=== PATIENT | male | born 1960 | race Caucasian/White ===

== ENCOUNTER 2021-01-24 11:31 | Inpatient (IN) | payer OTHER ==
[~2021-01-24] VITALS: Ht 182.9 cm; Wt 99.3 kg
[2021-01-24 12:58] LABS: HEMOGLOBIN 12.6 gm/dl (14.0-17.5); RED BLOOD COUNT 4.12 M/UL (4.20-5.50); WHITE BLOOD COUNT 12.8 K/UL (4.5-11.0)
[2021-01-24 13:18] LABS: BUN/CREATININE RATIO 13 (0-10)
[2021-01-25 05:55] LABS: HEMOGLOBIN 11.4 gm/dl (14.0-17.5); RED BLOOD COUNT 3.8 M/UL (4.20-5.50); WHITE BLOOD COUNT 12.7 K/UL (4.5-11.0)
[2021-01-26 05:08] LABS: HEMOGLOBIN 11.5 gm/dl (14.0-17.5); RED BLOOD COUNT 3.82 M/UL (4.20-5.50); WHITE BLOOD COUNT 10.9 K/UL (4.5-11.0)
--- NOTE | 2021-01-26 08:10 | NUR ---
RN ADMINISTERED PATIENT'S MEDICATIONS PER ORDER AND ASKED IF HE NEEDED ANYTHING. PATIENT STATED HE WOULD LIKE TO GET UP LATER IN THE DAY AND ASKED RN IF IT WAS OKAY. RN ENCOURAGED PATIENT TO USE HIS CALL LIGHT TO ASK STAFF FOR HELP TO ENSURE SAFETY IF OXYGEN SATURATION OR BLOOD PRESSURE DECREASED ON SITTING OR STANDING. PATIENT VERBALIZED UNDERSTANDING AND AGREED TO RING OUT WHEN HE DESIRED TO AMBULATE. NO S/SX OF PAIN OR DISTRESS NOTED. BED LOCKED AND LOW. CALL LIGHT WITHIN REACH.
[2021-01-27 07:27] LABS: HEMOGLOBIN 10.9 gm/dl (14.0-17.5); RED BLOOD COUNT 3.78 M/UL (4.20-5.50); WHITE BLOOD COUNT 11.2 K/UL (4.5-11.0)
--- NOTE | 2021-01-27 09:40 | NUR ---
RN WAS IN PATIENT'S ROOM TALKING WITH PATIENT AND PATIENT'S WHILE ADMINISTERING MORNING MEDICATIONS. PATIENT'S INFORMED RN THAT SHE HAD REMOVED PATIENT'S OXYGEN "FOR 8 MINUTES" WHILE SHE INSTRUCTED HIM TO BREATHE DEEPLY THROUGH PURSED LIPS. RN EDUCATED PATIENT AND HIS THAT IT WASN'T A GOOD IDEA TO REMOVE OXYGEN FOR LONG PERIODS OF TIME. RN STATED IT WOULD BE ALRIGHT TO REMOVE BRIEFLY TO CLEAN NOSE IF NECESSARY, BUT IT NEEDED TO STAY IN. PATIENT STATED HIS NOSE WAS DRY AND IT MADE IT PAINFUL TO WEAR HIS OXYGEN. SUGGESTED HE USE FACILITY CHAPSTICK TO MOISTEN NASAL PASSAGE IT WAS PETROLEUM FREE, RN AGREED. PATIENT BED LOCKED AND LOW. NO S/SX OF PAIN OR DISCOMFORT. RN CALLED TELEMETRY AND ASKED IF PATIENT'S OXYGEN HAD DROPPED ANY THIS SHIFT, THEY STATED HIS OXYGEN WENT TO 80 BUT HE "WENT RIGHT BACK UP." RN INSTRUCTED THEM TO CALL IF PATIENT'S OXYGEN SATURATION FELL BELOW 90 AGAIN, STAFF AGREED. MADE AWARE.
[2021-01-28 06:59] LABS: HEMOGLOBIN 11.3 gm/dl (14.0-17.5); RED BLOOD COUNT 3.75 M/UL (4.20-5.50); WHITE BLOOD COUNT 11.7 K/UL (4.5-11.0)
[2021-01-28 07:19] LABS: BUN/CREATININE RATIO 14 (0-10)
--- NOTE | 2021-01-28 07:20 | NUR ---
RN NOTICED THAT PATIENT OXYGEN SATURATION FELL BELOW 90%. RN CALLED TELEMETRY TO SEE IF IT WAS AN ACCURATE READING. STAFF WENT TO CHECK ON PATENT AND SAW THAT PATIENT WAS WALKING TO THE BATHROOM. PATIENT OXYGEN SATURATION CONTINUED TO FALL IN THE 80'S AND STATED SHE WAS GIVING PATIENT A SHOWER WHILE HE SAT DOWN ON SHOWER SEAT AND SHE WOULD KEEP HIS PULSE OXIMETRY AND TELEMETRY LEADS ON. STAFF EDUCATED PATIENT AND ON WHY THIS IS NOT A SAFE PRACTICE AND OFFERED TO HELP GIVE PATIENT A BED BATH, PATIENT AND DECLINED. RN TO ENCOURAGE PATIENT TO PACE SELF AND NOT TEST PHYSICAL LIMITATIONS TO THE POINT OF LOWERING OXYGEN SATURATION BELOW DESIRABLE LIMITS, PATIENT VERBALIZED UNDERSTANDING.
[2021-01-29 04:06] LABS: HEMOGLOBIN 11.5 gm/dl (14.0-17.5); WHITE BLOOD COUNT 12.8 K/UL (4.5-11.0)
[2021-01-30 05:17] LABS: HEMOGLOBIN 11.9 gm/dl (14.0-17.5); RED BLOOD COUNT 3.92 M/UL (4.20-5.50); WHITE BLOOD COUNT 12.5 K/UL (4.5-11.0)
[2021-01-30 05:47] LABS: BUN/CREATININE RATIO 15 (0-10)
[2021-01-31 06:52] LABS: HEMOGLOBIN 11.8 gm/dl (14.0-17.5); RED BLOOD COUNT 3.95 M/UL (4.20-5.50)
[2021-01-31] MEDS ORDERED: DECADRON6 MG PO (10:37)
[2021-01-31] MEDS ORDERED: ELIQUIS5 MG PO (10:37)
== END 2021-01-31 14:47 | disposition home or self-care (01) | DRG 177 ==
LOC: ER1 11:31 → MED SURG 4 14:28 → CDU 14:28 → MED SURG 4 22:56
PROVIDERS: Family Medicine; Internal Medicine; Physician Assistant Medical; ADMIT Internal Medicine
PROC: 8E0ZXY6 Isolation (ICD-10-PCS; principal; 2021-01-24)
PROC: 3E0333Z Introduction of Anti-inflammatory into Peripheral Vein, Percutaneous Approach (ICD-10-PCS; 2021-01-24)
PROC: XW033E5 Introduction of Remdesivir Anti-infective into Peripheral Vein, Percutaneous Approach, New Technology Group 5 (ICD-10-PCS; 2021-01-24)
PROC: 5A0945A Assistance with Respiratory Ventilation, 24-96 Consecutive Hours, High Flow/Velocity Cannula (ICD-10-PCS; 2021-01-24)
DX: U07.1 COVID-19 (principal); J12.82 Pneumonia due to coronavirus disease 2019; J96.01 Acute respiratory failure with hypoxia; J15.9 Unspecified bacterial pneumonia; N17.9 Acute kidney failure, unspecified; E87.6 Hypokalemia; Z82.49 Family history of ischemic heart disease and other diseases of the circulatory system; Z79.899 Other long term (current) drug therapy
CPT/HCPCS: 36415; 36600; 71045; 80048; 80053; 82550; 82553; 82803; 83735; 83874; 83880; 84132; 84484; 85025; 85027; 85379; 86140; 87205; 94640; 94664; 94668; 94760; 96374; 96375; 97161; 99285; J0696; J1100; J1650; J7030; U0002